=== PATIENT | male | born 1965 | race Caucasian/White ===

== ENCOUNTER → 2022-11-17 | Outpatient (CLI) | payer OTHER ==
--- NOTE | 2022-11-17 11:19 | XR ---
EXAMINATION TYPE: XR ankle complete RT, XR tibia fibula RT, XR foot complete RT, XR knee complete RT DATE OF EXAM: 11/17/2022 11:12 AM INDICATION: Patient age:Male; 57 years old; Reason for study: S80.01XA S80.11XA S90.01XA S90.31XA; [facility]. COMPARISON: None TECHNIQUE: The right foot, ankle and knee were imaged in frontal, lateral and oblique projections. Right tibia and fibula were evaluated in frontal and lateral views. FINDINGS: Calcaneal plantar spurring is noted. There is soft tissue swelling around the ankle most pronounced i n the medial aspect. Growth arrest lines are noted within the distal tibia. Prior syndesmotic injury suggested with irregularity to the lateral aspect of the tibial cortex of the metadiaphyseal region. No evidence of fracture. No dislocation. Prominent posterior process of the talus is noted. There is a fabella present. Mild osteoarthrosis changes of the tibial plateau with osteophyte formation of the tibial plateau and patella and femoral condyles. Visualized portions of the foot are grossly unremar kable mild multifocal osteoporosis changes. No evidence of knee joint effusion. IMPRESSION: 1. No evidence of acute fracture. 2. Subcutaneous swelling around the ankle likely secondary to underlying soft tissue injury.
== END | disposition home or self-care (01) ==
LOC: RADXRMAIN 10:46
PROVIDERS: ATTEND Emergency Medicine
DX: S80.01XA Contusion of right knee, initial encounter (principal); S80.11XA Contusion of right lower leg, initial encounter; S90.01XA Contusion of right ankle, initial encounter; S90.31XA Contusion of right foot, initial encounter; M25.471 Effusion, right ankle